=== PATIENT | male | born 1960 | race Caucasian/White ===

== ENCOUNTER 2020-01-03 07:07 | Day surgery (SDC) | payer BC, SELFPAY ==
[~2020-01-03] VITALS: Ht 170.2 cm; Wt 93.0 kg
[2020-01-03] MEDS ORDERED: SIMETHICONE 40 MG/0.6 ML ML ONE (07:45)
[2020-01-03] MEDS: MIDAZOLAM HCL 5 MG/5 ML VIAL ONE ×2 (08:36→08:38)
[2020-01-03] MEDS: fentaNYL CITRATE/PF 100 MCG/2 ML AMP ONE ×2 (08:36→08:38)
[2020-01-03 08:55] VITALS: BP_SYST 116
== END 2020-01-03 09:28 | disposition still patient (30) ==
LOC: SDS 07:07 → SMU 07:08 → SDS 09:28
PROVIDERS: ATTEND Internal Medicine
DX: R10.13 Epigastric pain (principal); K29.50 Unspecified chronic gastritis without bleeding; R79.89 Other specified abnormal findings of blood chemistry; I10 Essential (primary) hypertension; Z20.828 Contact with and (suspected) exposure to other viral communicable diseases; Z87.891 Personal history of nicotine dependence
CPT/HCPCS: 36415; 43239; 87081; 88305; 88312; 88313; 99152; G0378; J2250; J3010; J7030; U0003